=== PATIENT | male | born 1960 | race Caucasian/White ===

== ENCOUNTER → 2020-11-24 14:23 | Outpatient (BNVA) | payer BC, SELFPAY | PROVIDERS: PCP Family Medicine; Visit Provider Urology | DX: Z13.89 Encounter for screening for other disorder (principal) ==

== ENCOUNTER → 2021-12-09 08:56 | Outpatient (BNVA) | payer BC, SELFPAY | PROVIDERS: PCP Family Medicine; Visit Provider Urology | DX: Z13.89 Encounter for screening for other disorder (principal) ==

== ENCOUNTER → 2022-12-12 14:50 | Outpatient (BNVA) | payer BC, SELFPAY | PROVIDERS: PCP Family Medicine; Visit Provider Nurse Practitioner Family | DX: R97.20 Elevated prostate specific antigen [PSA] (principal); N40.1 Benign prostatic hyperplasia with lower urinary tract symptoms; R39.12 Poor urinary stream; R35.0 Frequency of micturition | CPT/HCPCS: 51798 ==

== ENCOUNTER → 2022-12-29 08:33 | Outpatient (BNVA) | payer BC, SELFPAY | PROVIDERS: PCP Family Medicine; Visit Provider Nurse Practitioner Family ==

== ENCOUNTER 2023-05-02 15:17 | Outpatient (AMB) | payer BC, SELFPAY ==
--- NOTE | 2023-05-02 15:17 | A.OFFVIS_ITS ---
Intake Intake Visit Reasons: 4m/PSA Intake Note: Patient presents for tele visit follow up PSA (psa 1.9) Urology Medications: finasteride Blood Thinner: aspirin Senior Software Quality Analyst Required: No Allergies No Known Allergies Allergy (Verified 05/02/23 15:17) HPI HPI Comments History of Present Illness Details Estevan is a very pleasant 62 year old male patient of Dr Huizar. He has a past medical history of hypercholesteremia, hernia, BPH with LUTS, and elevated PSA. He is being follow-up on today via telehealth for his lower urinary tract symptoms and elevated PSA. In discussion with the patient today reports to be doing and feeling well. Recent PSA results reviewed with the patient today. PSA 04/28--1.9. Patient reports compliance with finasteride 5 mg Sunday. He denies any bothersome urinary issues or concerns at this time. He reports nocturia up to 1-2 times per night however this is not bothersome for him. He denies urinary urgency, urinary frequency, incontinence, hematuria, dysuria, foul smelling urine, changes to urinary stream, flank pain, fever, and or chills. He is happy with his current voiding parameters. Lower Urinary Tract Symptoms: Current visit is for further evaluation of, lower urinary tract symptoms, and elevated PSA. Current treatment includes medication finasteride. Prostate Symptom Score Mild (0-8), Bother 2 09/25 , Mild (0-8), Bother 2. Symptoms include frequency, weak stream, and are stable Results from testing include uroflow was performed Yes with a voided volume of 156 with a maximum flow rate (Q max) 13.6 the following patterns were seen normal renal/bladder us Yes date 04/16/2018 prostate size 50 Original PSA density less than 0.15 Prior Prostate Score mild. PSA 2010 1.4, 2012 2.2, 2014 2.5, 2013 2.9, 2014 2.9, 02/2016 3.4, 02/19 3.6 02/20 4.1 08/24 4.3 20%, 02/21 2.3 08/25 2.0, 08/26 1.6, 10/25 1.7, 12/26 5.0, 12/26 3.1, 04/28 1.9 Associated conditions CAD No CVA No diabetes No elevated PSA No erectile dysfunction No hematuria No renal insufficiency No urge incontinence No urinary retention No urinary tract infection No psychiatric diagnosis No PFSH Medical History Hypercholesterolemia Hernia Poor urinary stream Benign prostatic hyperplasia with lower urinary tract symptoms Elevated PSA Surgical History History of surgery Review of Systems Const All systems reviewed & are unremarkable except as noted in HPI and below Reports no additional complaints Eyes Reports no additional complaints ENT Reports no additional complaints Card Reports as per HPI Resp Reports no additional complaints GI Reports no additional complaints Reports as per HPI Musc Reports no additional complaints Neuro Reports no additional complaints Psych Reports no additional complaints Endo Reports no additional complaints Hany/Lymph Reports no additional complaints Aller/Immun Reports no additional complaints Physical Exam Const General: cooperative Orientation/consciousness: patient oriented x3 Resp Effort & Inspection: able to speak in complete sentences Neuro General: patient oriented x3 Psych Attitude: cooperative Thought process: Normal thought process present Thought content: Normal thought content present Insight: Good insight present (Psych) Judgement: Good judgement present (Psych) Assessment & Plan Assessment & Plan (1) Elevated PSA: Code(s): R97.20 - Elevated prostate specific antigen [PSA] (2) Benign prostatic hyperplasia with lower urinary tract symptoms: Code(s): N40.1 - Benign prostatic hyperplasia with lower urinary tract symptoms Plan Recent PSA results reviewed with the patient today; as noted above. Continue Finasteride; Sunday Patient denies any urological issues or concerns at this time. Patient is happy with current voiding parameters. PSA in 6 months Follow-up in 6 months with labs to be completed prior; or sooner with any issue s, concerns, and or questions. Orders: Orders Prostate Specific Antigen 6 Months R97.20 - Elevated prostate specific antigen [PSA] Patient Instructions: The patient had an opportunity to ask questions regarding the treatment plan. A ll questions were answered. Physical exam, labs, and imaging were discussed and reviewed in detail. As well as risks, benefits, and discussion of treatment choices. No major barriers to understanding were identified. The patient expressed understanding and agreement with the above treatment plan. The patient was made aware they should contact our office by phone for worsening of their current condition, the appearance of new symptoms, or with any questions or concerns. Compliance is encouraged with any medications and follow up testing that is ordered. It is a privilege to be allowed the opportunity to participate in? your urological care.? Again, if you have any questions or concerns If you have any questions or concerns please do not hesitate to contact me. The office is [phone]. This note is constructed using voice recognition software. While every effort has been made to ensure accuracy nursing resident errors may have been included. Yours sincerely, ROBERTO HernandezR[facility] Telehealth Telehealth Location of provider rendering services: practice address Location of patient: address on file Patient Identification confirmed using: Name, : Yes Telehealth method: voice only Patient verbally consented to treatment: Yes Patient verbally consented to billing insurance company: Yes Patient informed of any privacy concerns related to visit: Yes Minutes spent on Phone/Video with Pt.: 15 Coding Level of Care Code Tele Est Pt Level 3 (22405) Diagnoses Elevated PSA R97.20 Benign prostatic hyperplasia with lower urinary tract symptoms N40.1 Time Spent (min) 15
== END 2023-05-03 08:31 | disposition home or self-care (01) ==
LOC: HO.HUSH 15:17
PROVIDERS: PCP Family Medicine; Visit Provider Nurse Practitioner Family
DX: R97.20 Elevated prostate specific antigen [PSA] (principal); N40.1 Benign prostatic hyperplasia with lower urinary tract symptoms
CPT/HCPCS: 99442

== ENCOUNTER → 2023-05-02 15:17 | Outpatient (BNVA) | payer BC, SELFPAY | PROVIDERS: PCP Family Medicine; Visit Provider Nurse Practitioner Family ==

== ENCOUNTER 2024-08-13 11:27 | Outpatient (AMB) | payer BC, SELFPAY ==
--- NOTE | 2024-08-13 11:33 | A.OFFVIS_ITS ---
Intake Visit Reasons: 1Y PSA(set) Intake Note: Patient is present for 1Y PSA Urology Med: Finasteride Antibiotic Allergy: None Blood Thinner: ASPIRIN Sales Superintendent Required: No Allergies No Known Allergies Allergy (Verified 08/13/24 11:34) HPI Comments Details: Estevan is a pleasant male. He is a patient of Dr. Huizar. He is seen for the following urologic conditions - lower urinary tract symptoms Finasteride Sunday, Sunday, Sunday Nocturia 1-2 times per night but stable Otherwise reports normal urinary parameters Has not been seen for 18 months PSA remains low 08/30 2.1 Did have UTI which popped PSA up to 6 Twelve month follow-up PSA and PVR Lower Urinary Tract Symptoms: Current visit is for further evaluation of, lower urinary tract symptoms, and elevated PSA. Current treatment includes medication finasteride. Prostate Symptom Score Mild (0-8), Bother 2 09/25 , Mild (0-8), Bother 2. Symptoms include frequency, weak stream, and are stable Results from testing include uroflow was performed Yes with a voided volume of 156 with a maximum flow rate (Q max) 13.6 the following patterns were seen normal renal/bladder us Yes date 04/16/2018 prostate size 50 Original PSA density less than 0.15 Prior Prostate Score mild. PSA 2010 1.4, 2011 2.2, 2014 2.5, 2013 2.9, 2014 2.9, 02/2016 3.4,02/19 3.6, 02/20 4.1, 08/24 4.3 20%, 02/21 2.3, 08/25 2.0, 08/26 1.6, 10/25 1.7, 12/26 5.0, 12/26 3.1, 04/28 1.9, 08/30 2.1 PFSH Medical History Hypercholesterolemia Hernia Poor urinary stream Benign prostatic hyperplasia with lower urinary tract symptoms Elevated PSA Surgical History History of surgery Assessment & Plan Assessment & Plan (1) Elevated PSA: Code(s): R97.20 - Elevated prostate specific antigen [PSA] Category: Medical (2) Benign prostatic hyperplasia with lower urinary tract symptoms: Code(s): N40.1 - Benign prostatic hyperplasia with lower urinary tract symptoms Category: Medical Plan Twelve month follow-up Orders: Orders Prostate Specific Antigen 08/06/24 R97.20 - Elevated prostate specific antigen [PSA] Prostate Specific Antigen 364 Days N40.1 - Benign prostatic hyperplasia with lower urinary tract symptoms AMB Urinalysis Automated Today Z13.9 - Encounter for screening, unspecified Patient Instructions: Imaging studies, laboratory and physical exam results were discussed and reviewed in detail. No major barriers to patient understanding were identified. An opportunity to ask questions regarding the treatment plan was provided. All questions were answered. The patient expressed understanding and agreement with the above treatment plan. The patient is aware they should contact our office by phone for worsening of their current condition or the appearance of new urologic symptoms. Compliance is encouraged with any medications and followup testing that is ordered. It is a privilege to participate in the urologic care of your patient. If you have any questions or concerns regarding treatment for the above conditions, or other urologic issues, please do not hesitate to contact me. The office telephone contact is [phone]. This note is constructed using voice recognition software. While every effort has been made to ensure accuracy item processor errors may have been included. Yours sincerely, Dr Erik Garcia MD, [facility] - Urology Providers of Expert, Compassionate Care for the Genitourinary System Coding Level of Care Code Est Pt Level 4 (77746) Diagnoses Elevated PSA R97.20 Benign prostatic hyperplasia with lower urinary tract symptoms N40.1
== END 2024-08-13 12:05 | disposition home or self-care (01) ==
PROVIDERS: PCP Family Medicine; Visit Provider Urology
DX: R97.20 Elevated prostate specific antigen [PSA] (principal); N40.1 Benign prostatic hyperplasia with lower urinary tract symptoms; Z13.9 Encounter for screening, unspecified
CPT/HCPCS: 99214

== ENCOUNTER → 2024-08-13 11:27 | Outpatient (BNVA) | payer BC, SELFPAY | PROVIDERS: PCP Family Medicine; Visit Provider Urology | DX: R97.0 Elevated carcinoembryonic antigen [CEA] (principal); N40.1 Benign prostatic hyperplasia with lower urinary tract symptoms; R35.0 Frequency of micturition; R39.12 Poor urinary stream | CPT/HCPCS: 81003 ==